=== PATIENT | female | born 1975 | race Two or more races ===

== ENCOUNTER 2017-07-10 17:26 | Emergency (ER) | payer MEDICAID, OTHER ==
[2017-07-10 17:34] VITALS: RESP 16; TEMP 97.9
[2017-07-10] MEDS ORDERED: NS 1,000 ML IV ONE (17:48)
--- NOTE | 2017-07-10 18:00 | EDPHY ---
H & P Stated Complaint: spoting , and cramping today Time Seen by Provider: 07/10/17 17:57 HPI/ROS: HPI: This is a 42-year-old female who presents with Chief Complaint: Vaginal spotting and pelvic cramping Location: Quality: Vaginal spotting and pelvic cramping Duration: Started approximately 3 hours ago Signs and Symptoms: no fever, + nausea, no vomiting, no hematemesis, no blood in stool, no abdominal bloating, no diarrhea, no back pain, no urinary symptoms , no indigestion, no chest pain, no shortness of breath, no vaginal discharge Timing: Sudden, intermittent Severity: 11/22 Context: Patient's last menstrual period was May 18; EGA=7 weeks and 4 days; ; who while at work today at around 2:30 p.m. went to use the restroom and noticed some vaginal spotting when she wiped accompanied by sudden onset of lower pelvic, waxing waning of cramps. Her 1st was uncomplicated. Patient reports that she has been at work all day on her feet. She has drank approximately 1/3 miss of water. Denies urinary symptoms. No recent sexual intercourse. Patient did not have a primary care provider prior to finding out she was ; she is made a few calls and has an appointment in approximately 4-5 weeks. Patient is unsure of her blood type. No concern for sexually transmitted diseases. Modifying Factors: None Comment: ROS: see HPI Constitutional: No fever, no chills, no weight loss Eyes: No blurred vision Respiratory: No shortness of breath, no cough Cardiovascular: No chest pain, no palpitations Gastrointestinal: + nausea, no vomiting, no diarrhea, no hematemesis, no blood in stool Genitourinary: No dysuria, no blood in urine Extremities: No myalgias, no edema Neurologic: No weakness, no numbness Skin: No rashes, no petechiae Hematologic: No bruising, no bleeding MEDICAL/SURGICAL/SOCIAL HISTORY: Medical history: IBS and nephritis. Does not take any regular medications. Surgical history: Denies Social history: Employed CONSTITUTIONAL: Pleasant well-appearing middle-aged female, awake and alert, no obvious distress HEENT: Atraumatic and normocephalic, PERRL, EOMI. Tympanic membranes clear. Oropharynx clear, no exudate and moist pink mucosa. Airway patent. No lymphadenopathy. No meningismus. Cardiovascular: Normal S1/S2, regular rate, regular rhythm, without murmur rub or gallop. PULMONARY/CHEST: Symmetrical and nontender. Clear to auscultation bilaterally. Good air movement. No accessory muscle usage. ABDOMEN: Soft, nondistended, nontender, no rebound, no guarding, no peritoneal signs, no masses or organomegaly. No CVAT. PELVIC: normal external genitalia, normal cervix, cervical os was closed, no cervical motion tenderness, no adnexal mass, no discharge, no bleeding. The exam was performed with a manager credit risk. EXTREMITIES: 2/2 pulses, no deformities, no clubbing, no cyanosis or edema. NEUROLOGICAL: no focal neuro deficits. GCS 15. SKIN: Warm and dry, no erythema. no rash. Good capillary refill. Source: Patient Exam Limitations: No limitations - Personal History LMP (Females 10-55): Now Current Tetanus Diphtheria and Acellular Pertussis (TDAP): Yes Tetanus Vaccine Date: 2010 - Medical/Surgical History Hx Asthma: No Hx Chronic Respiratory Disease: No Hx Diabetes: No Hx Cardiac Disease: No Hx Renal Disease: No Hx Cirrhosis: No Hx Alcoholism: No Hx HIV/AIDS: No Hx Splenectomy or Spleen Trauma: No Other PMH: IBS, Nephritis - Social History Smoking Status: Never smoked Constitutional: Initial Vital Signs Temperature (C) 36.6 C 07/10/17 17:31 Heart Rate 82 07/10/17 17:31 Respiratory Rate 16 07/10/17 17:31 Blood Pressure 107/76 07/10/17 17:31 O2 Sat (%) 96 07/10/17 17:31 O2 Delivery Mode Room Air Allergies/Adverse Reactions: Sulfa (Sulfonamide Antibiotics) Allergy (Verified 10/10/15 11:22) Home Medications: Medication Instructions Recorded NK [No Known Home Meds] 10/10/15 Medical Decision Making - Diagnostics Imaging Results: Imaging Impressions Obstetrics Ultrasound 07/10/17 17:49 Impression: There is a "candidate structure" within the fundal endometrium which may represent a gestational sac containing a yolk sac as well as a tiny echogenic embryonic pole, however given the small size, cardiac activity and viability cannot yet be confirmed. Continued clinical correlation to include closely-monitored serial beta hCG levels and repeat sonography in 10-14 days is suggested. Findings were discussed with Beth Damico PA-C at 19:10, on 07/10/2017. ED Course/Re-evaluation: Urinalysis, labs, ultrasound, IV fluids ordered Pelvic exam performed; no indication to obtain wet prep/gonorrhea/chlamydia swabs 190: Labs reviewed and beta-hCG quant 5759, no other significant lab abnormalities Called by radiologist Dr. Garces who advised that the ultrasound shows gestational sac, embryonic pole, EGA is approximately 6 weeks and 0 days, unable to find heart tones. No signs of subchorionic hemorrhage. Urinalysis is negative for infection, no ketones. Will have patient follow up with OBGYN; call for appointment to be seen on Friday as today is to have repeat serum beta HCG levels and ultrasound. Differential Diagnosis: Vaginal bleeding including but not limited to ectopic , menses, miscarriage, and dysfunctional uterine bleeding. - Data Points Laboratory Results: Laboratory Results 07/10/17 18:03 07/10/17 18:03 07/10/17 07/10/17 07/10/17 19:20 18:03 18:03 WBC RBC Hgb Hct MCV MCH MCHC RDW Plt Count MPV Neut % (Auto) Lymph % (Auto) Yates % (Auto) Eos % (Auto) Baso % (Auto) Nucleat RBC Rel Count Absolute Neuts (auto) Absolute Lymphs (auto) Absolute Monos (auto) Absolute Eos (auto) Absolute Basos (auto) Absolute Nucleated RBC Immature Gran % Immature Gran # Sodium 141 mEq/L mEq/L (134-144) Potassium 4.0 mEq/L mEq/L (3.5-5.2) Chloride 103 mEq/L mEq/L (97-110) Carbon Dioxide 25 mEq/l mEq/l (22-31) Anion Gap 13 mEq/L mEq/L (8-16) BUN 10 mg/dL mg/dL (7-23) Creatinine 0.6 mg/dL mg/dL (0.6-1.0) Estimated GFR > 60 Glucose 99 mg/dL mg/dL (70-100) Calcium 9.8 mg/dL mg/dL (8.5-10.4) Beta HCG, Qual POSITIVE Beta HCG, Quant 5759.30 mIU/mL H mIU/mL (0.00-4.83) Urine Color YELLOW Urine Appearance TURBID Urine pH 8.0 H (5.0-7.5) Ur Specific Atlantic 1.016 (1.002-1.030) Urine Protein NEGATIVE (NEGATIVE) Urine Ketones NEGATIVE (NEGATIVE) Urine Blood NEGATIVE (NEGATIVE) Urine Nitrate NEGATIVE (NEGATIVE) Urine Bilirubin NEGATIVE (NEGATIVE) Urine Urobilinogen NEGATIVE EU EU (0.2-1.0) Ur Leukocyte Esterase NEGATIVE (NEGATIVE) Urine Glucose NEGATIVE (NEGATIVE) 07/10/17 18:03 WBC 5.40 10^3/uL 10^3/uL (3.80-9.50) RBC 4.06 10^6/uL L 10^6/uL (4.18-5.33) Hgb 13.3 g/dL g/dL (12.6-16.3) Hct 38.5 % % (38.0-47.0) MCV 94.8 fL fL (81.5-99.8) MCH 32.8 pg pg (27.9-34.1) MCHC 34.5 g/dL g/dL (32.4-36.7) RDW 12.1 % % (11.5-15.2) Plt Count 244 10^3/uL 10^3/uL (150-400) MPV 9.8 fL fL (8.7-11.7) Neut % (Auto) 72.3 % % (39.3-74.2) Lymph % (Auto) 21.3 % % (15.0-45.0) Yates % (Auto) 5.4 % % (4.5-13.0) Eos % (Auto) 0.4 % L % (0.6-7.6) Baso % (Auto) 0.4 % % (0.3-1.7) Nucleat RBC Rel Count 0.0 % % (0.0-0.2) Absolute Neuts (auto) 3.91 10^3/uL 10^3/uL (1.70-6.50) Absolute Lymphs (auto) 1.15 10^3/uL 10^3/uL (1.00-3.00) Absolute Monos (auto) 0.29 10^3/uL L 10^3/uL (0.30-0.80) Absolute Eos (auto) 0.02 10^3/uL L 10^3/uL (0.03-0.40) Absolute Basos (auto) 0.02 10^3/uL 10^3/uL (0.02-0.10) Absolute Nucleated RBC 0.00 10^3/uL 10^3/uL (0-0.01) Immature Gran % 0.2 % % (0.0-1.1) Immature Gran # 0.01 10^3/uL 10^3/uL (0.00-0.10) Sodium Potassium Chloride Carbon Dioxide Anion Gap BUN Creatinine Estimated GFR Glucose Calcium Beta HCG, Qual Beta HCG, Quant Urine Color Urine Appearance Urine pH Ur Specific Atlantic Urine Protein Urine Ketones Urine Blood Urine Nitrate Urine Bilirubin Urine Urobilinogen Ur Leukocyte Esterase Urine Glucose Medications Given: Discontinued Medications Sodium Chloride (Ns) 1,000 mls @ 0 mls/hr IV ONCE ONE; Wide Open PRN Reason: Protocol Stop: 07/10/17 17:49 Last Admin: 07/10/17 18:06 Dose: 1,000 mls Departure - Departure Disposition: Home, Routine, Self-Care Clinical Impression: Threatened miscarriage in early Condition: Good Instructions: Threatened Miscarriage (ED) Additional Instructions: Observe pelvic rest. Do not place anything inside of your vagina including having sex, douche, tampons. Rest and avoid strenuous activities. During plenty of fluids to prevent dehydration. Take a vitamin daily. You may take Tylenol as needed for pain. Please follow up with OBGYN . Call tomorrow for an appointment to be scheduled on Friday to have repeat serum HCG levels and re-evaluation. Referrals: Zulma Pinzon DO [Doctor of Osteopathy] - As per Instructions
[2017-07-10 18:20] LABS: % IMMATURE GRANULYOCYTES 0.2 % (0.0-1.1); ABSOLUTE IMMATURE GRANULOCYTES 0.01 10^3/uL (0.00-0.10); ADD DIFF? NO; ADD MORPH? NO; ADD SCAN? NO; ATYPICAL LYMPHOCYTE FLAG 20 (0-99); FRAGMENT RBC FLAG 0 (0-99); HEMATOCRIT 38.5 % (38.0-47.0); HEMOGLOBIN 13.3 g/dL (12.6-16.3); LEFT SHIFT FLG 0 (0-99); LIPEMIA HEMOLYSIS FLAG 90 (0-99); MEAN CELL HEMOGLOBIN 32.8 pg (27.9-34.1); MEAN CELL HEMOGLOBIN CONCENTR. 34.5 g/dL (32.4-36.7); MEAN CELL VOLUME 94.8 fL (81.5-99.8); MEAN PLATELET VOLUME 9.8 fL (8.7-11.7); PLATELET CLUMPS FLAG 10 (0-99); PLATELET COUNT 244 10^3/uL (150-400); RED BLOOD CELL COUNT 4.06 10^6/uL (4.18-5.33); RED CELL DISTRIBUTION WIDTH 12.1 % (11.5-15.2)
[2017-07-10 18:32] LABS: ANION GAP 13 mEq/L (8-16); CALCIUM 9.8 mg/dL (8.5-10.4); CARBON DIOXIDE 25 mEq/l (22-31); CHLORIDE 103 mEq/L (97-110); CREATININE 0.6 mg/dL (0.6-1.0); GLOMERULAR FILTRATION RATE > 60; GLUCOSE 99 mg/dL (70-100); SODIUM 141 mEq/L (134-144)
[2017-07-10 19:31] LABS: COLOR YELLOW; LEUKOCYTE ESTERASE,URINE NEGATIVE (NEGATIVE); NITRITE,URINE NEGATIVE (NEGATIVE)
[2017-07-10 19:34] VITALS: BP 105/69; PULSE 66; O2SAT 97
== END 2017-07-10 19:32 | disposition home or self-care (01) ==
PROC: 3E0337Z Introduction of Electrolytic and Water Balance Substance into Peripheral Vein, Percutaneous Approach (ICD-10-PCS; principal; 2017-07-10)
DX: O20.0 Threatened abortion (principal); E86.9 Volume depletion, unspecified; Z3A.01 Less than 8 weeks gestation of pregnancy

== ENCOUNTER 2017-07-12 10:58 | Emergency (ER) | payer MEDICAID ==
--- NOTE | 2017-07-12 11:50 | EDPHY ---
General - History Smoking Status: Never smoked Narrative: CHIEF COMPLAINT: Vaginal bleeding in HISTORY OF PRESENT ILLNESS: Patient complains of vaginal bleeding in . She is approximately 8 weeks with last menstrual period of May 18. She is a with normal 1st . She had spotting that started several days ago. She was evaluated here for this. She was discharged home after ultrasound, pelvic exam , urinalysis, laboratory studies with threatened miscarriage. The Rh type was unable to be performed due to lab error. She returns today with increasing bleeding and spotting. She has some pelvic cramping yesterday but not this time. No chest pain or shortness of breath. She did have some lightheadedness. No syncope. The bleeding is less than 1 pad every 2-4 hours. No other associated complaints or modifying factors. She has not yet established with an OB physician for this . REVIEW OF SYSTEMS: Ten systems reviewed and are negative unless otherwise noted in the HPI PCP: Dr. Oliveros SPECIALISTS: Not established with OB PAST MEDICAL HISTORY: Per medical history PAST SURGICAL HISTORY: No surgical history SOCIAL HISTORY: Nonsmoker. Lives here with her spouse FAMILY HISTORY: Noncontributory EXAMINATION General Appearance: Alert, no distress Head: normocephalic, atraumatic Eyes: Pupils equal and round, no conjunctival pallor or injection ENT, Mouth: Mucous membranes moist Neck: Normal inspection, supple, non-tender Respiratory: Lungs are clear to auscultation. No wheezing, rhonchi or crackles Cardiovascular: Regular rate and rhythm. No murmur Gastrointestinal: Abdomen is soft and nontender. No distention. No tympany. No rigidity. Nonacute abdomen Back: non-tender, no bony abnormalities Neurological: A&O, nonfocal, normal gait Skin: Warm and dry, no rash Extremities: Nontender, no pedal edema Psychiatric: Mood and affect normal DIFFERENTIAL DIAGNOSES: Including but not limited to foot miscarriage, inevitable miscarriage subchorionic, intrauterine MDM: 11:40 a.m. Increasing bleeding in first-trimester . She was seen 2 days ago with initial evaluation performed here. Ultrasound was performed and I have reviewed this. IUP gestational sac is thought to be seen with recommendation of repeat ultrasound in 10-14 days. There appears to have been a difficulty with the blood bank, thus the are rates was never tested on this patient. Thus I ordered. Vital signs are stable. repeating her hemoglobin as well. She is in no acute distress. 1:40 p.m. CBC is unremarkable. HCG has gone down over course of 48 hours, from 5759 to 4640. I have evaluated the patient and informed her this is a nonviable . Rh positive, thus no indication for RhoGAM. We discussed discharge home with precautions for increasing bleeding greater than 1 pad per hour, abdominal pain that is too severe for her, lightheadedness, syncope or chest pain. I discussed pelvic rest and follow up with the on-call OB physician for definitive care. She is comfortable this plan. No pelvic exam performed she had one 2 days ago and does not want this repeated. She is discharged in stable condition. (Abad Menjivar) Medical Decision Making: PHYSICIAN DOCUMENTATION: The patient was evaluated and managed by the Physician Roof [employer] Tile Setter. My co- signature indicates that I have reviewed this chart and I agree with the findings and plan of care as documented. I am the secondary supervising physician. (Ric Samaniego) - Objective Vital Signs: Initial Vital Signs Temperature (C) 36.9 C 07/12/17 11:01 Heart Rate 70 07/12/17 11:01 Respiratory Rate 18 07/12/17 11:01 Blood Pressure 97/67 L 07/12/17 11:01 O2 Sat (%) 98 07/12/17 11:01 O2 Delivery Mode Room Air Allergies/Adverse Reactions: Sulfa (Sulfonamide Antibiotics) Allergy (Verified 07/12/17 11:01) Home Medications: Medication Instructions Recorded NK [No Known Home Meds] 10/10/15 Laboratory Results: Laboratory Results 07/12/17 12:25 07/12/17 07/12/17 07/12/17 12:25 12:25 12:25 WBC 7.06 10^3/uL 10^3/uL (3.80-9.50) RBC 3.99 10^6/uL L 10^6/uL (4.18-5.33) Hgb 13.6 g/dL g/dL (12.6-16.3) Hct 38.6 % % (38.0-47.0) MCV 96.7 fL fL (81.5-99.8) MCH 34.1 pg pg (27.9-34.1) MCHC 35.2 g/dL g/dL (32.4-36.7) RDW 12.0 % % (11.5-15.2) Plt Count 238 10^3/uL 10^3/uL (150-400) MPV 9.6 fL fL (8.7-11.7) Neut % (Auto) 73.7 % % (39.3-74.2) Lymph % (Auto) 18.1 % % (15.0-45.0) Floyd % (Auto) 5.9 % % (4.5-13.0) Eos % (Auto) 1.6 % % (0.6-7.6) Baso % (Auto) 0.4 % % (0.3-1.7) Nucleat RBC Rel Count 0.0 % % (0.0-0.2) Absolute Neuts (auto) 5.20 10^3/uL 10^3/uL (1.70-6.50) Absolute Lymphs (auto) 1.28 10^3/uL 10^3/uL (1.00-3.00) Absolute Monos (auto) 0.42 10^3/uL 10^3/uL (0.30-0.80) Absolute Eos (auto) 0.11 10^3/uL 10^3/uL (0.03-0.40) Absolute Basos (auto) 0.03 10^3/uL 10^3/uL (0.02-0.10) Absolute Nucleated RBC 0.00 10^3/uL 10^3/uL (0-0.01) Immature Gran % 0.3 % % (0.0-1.1) Immature Gran # 0.02 10^3/uL 10^3/uL (0.00-0.10) Beta HCG, Quant 4641.10 mIU/mL H mIU/mL (0.00-4.83) Patient ABO/Rh O POSITIVE Departure - Departure Disposition: Home, Routine, Self-Care Clinical Impression: Inevitable spontaneous Condition: Good Instructions: Miscarriage (ED), Threatened Miscarriage (ED) Additional Instructions: 1. Contact the on-call OB physician for definitive care early next week 2. ED precautions for worsening pain, lightheaded, syncope, chest pain, bleeding greater than 1 pad per hour Referrals: ADAM ANGELES [Primary Care Provider] - As per Instructions Tiny Roy MD [Medical Doctor] - As per Instructions Stand Alone Forms: Work Excuse
[2017-07-12 12:42] LABS: % IMMATURE GRANULYOCYTES 0.3 % (0.0-1.1); ABSOLUTE IMMATURE GRANULOCYTES 0.02 10^3/uL (0.00-0.10); ADD DIFF? NO; ADD MORPH? NO; ADD SCAN? NO; ATYPICAL LYMPHOCYTE FLAG 10 (0-99); FRAGMENT RBC FLAG 0 (0-99); HEMATOCRIT 38.6 % (38.0-47.0); HEMOGLOBIN 13.6 g/dL (12.6-16.3); LEFT SHIFT FLG 0 (0-99); LIPEMIA HEMOLYSIS FLAG 90 (0-99); MEAN CELL HEMOGLOBIN 34.1 pg (27.9-34.1); MEAN CELL HEMOGLOBIN CONCENTR. 35.2 g/dL (32.4-36.7); MEAN CELL VOLUME 96.7 fL (81.5-99.8); MEAN PLATELET VOLUME 9.6 fL (8.7-11.7); PLATELET CLUMPS FLAG 0 (0-99); PLATELET COUNT 238 10^3/uL (150-400); RED BLOOD CELL COUNT 3.99 10^6/uL (4.18-5.33)
[2017-07-12 13:23] VITALS: RESP 16
[2017-07-12 14:03] VITALS: BP 98/73; PULSE 61; TEMP 98.8; O2SAT 97
== END 2017-07-12 14:03 | disposition home or self-care (01) ==
DX: O03.9 Complete or unspecified spontaneous abortion without complication (principal); Z3A.08 8 weeks gestation of pregnancy

== ENCOUNTER 2017-08-05 07:30 | Day surgery (SDC) | payer MEDICAID ==
--- NOTE | 2017-07-31 22:45 | GHP ---
[f rep st] PREOP HISTORY AND PHYSICAL PROCEDURE TO BE PERFORMED: Suction dilation and curettage. PREOPERATIVE DIAGNOSIS: Missed . HISTORY OF PRESENT ILLNESS: Maisha is a 42-year-old 1, para 0-0-1-0 with a last menstrual period of 05/18/2017, who originally presented to the emergency department complaining of steady vaginal bleeding and cramping. She had episodes of heavy bleeding originally with lightheadedness and dizziness and she originally presented to the emergency room on July 12. She was evaluated, found to have a persistent gestational sac. No further heavy active bleeding and was diagnosed with a missed . She followed up with us on 07/14/2017. She had a minimal bleeding at that point. This was a desired and she wanted to make sure of the true diagnosis. A repeat ultrasound at that visit revealed a persistent gestational sac with debris and it was collapsed, and the diagnosis of incomplete was made. The patient was given treatment options of expectant management versus medical management versus surgical management. We carefully explained the pros, cons of each and the need to pass the tissue at least 2 weeks to prevent intrauterine infections that could compromise future fertility. 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 She did this at home and felt that she had heavy bleeding, passed the sac and tissue over couple days, and the bleeding got improved. When she presented for followup on July 30, 2017, she was not having active bleeding but she had irritated vagina, increased discharge with odor and evaluation revealed a persistent gestational sac in the uterus that was again collapsed and had debris. She also had moderate to moderate vaginal discharge was diagnosed with bacterial vaginosis. Again we discussed treatment options and patient opted to have a suction dilation curettage. She was also treated for her bacterial vaginosis with Metrogel prior to surgery. PAST OBSTETRICAL HISTORY: This is her 3rd . In 2007 she had a vaginal delivery without complications. In 2011 she had an elective termination. No other pregnancies. PAST GYNECOLOGICAL HISTORY: She had menarche at age 14. She has regular periods every 28 days. She bleeds approximately every 3 days, moderate flow, light cramps and she had a sure and regular last menstrual period of May, and they were trying to conceive. PAST MEDICAL HISTORY: She has no significant chronic medical problems or medical issues except anxiety. No surgical history. Never been hospitalized. MEDICATIONS: She is not on any current medications. ALLERGIES: She is allergic to sulfa, it gives her a rash. SOCIAL HISTORY: She is in a monogamous relationship but not . They are monogamous partners. She denies tobacco and alcohol use. She does admit to marijuana use socially. No other substances. She does regular exercise, yoga, running and dance. 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 FAMILY HISTORY: Significant for maternal grandmother with osteoporosis. No other significant medical problems. REVIEW OF SYSTEMS: Currently is negative except for what was pertinent above in HPI. PHYSICAL EXAMINATION: VITAL SIGNS: Today her blood pressure is 90/52. Weight is 125. GENERAL: She is well-developed, well-nourished female, in no acute distress. LUNGS: Clear to auscultation bilaterally. HEART: Regular rate and rhythm. No murmur. ABDOMEN: Soft, nontender, nondistended. Normal bowel sounds. PELVIC: Normal external genitalia. Moderate white to yellow discharge. Mild odor. Cervix is closed. Normal parous cervix. No cervical motion tenderness. No uterine tenderness. No adnexal tenderness. Wet prep and BEA were positive for clue cells and odor. Diagnosed with bacterial vaginosis. Pelvic ultrasound revealed a persistent collapsed gestational sac with debris. ASSESSMENT/PLAN: A 42-year-old 3, para 1-0-2-1 with an incomplete for suction dilation and curettage. Patient was consented for the procedure today. She understands the risks and benefits. The risks including bleeding, infection, damage to internal organs, uterus, tubes, ovaries, bowel, bladder, nerves, blood vessels, ureters, risk of needing additional procedures, risk of spontaneous expulsion of tissue at a later time, and compromise of future fertility. She understood these risks and benefits and agreed to proceed. /[id number]/MODL MTDD
[2017-08-05 07:46] VITALS: BP 105/69; PULSE 57; RESP 16; TEMP 98.6; O2SAT 92
--- NOTE | 2017-08-05 08:21 | PDANEPAE ---
ANE History of Present Illness 42 yo female with missed for D&C. ANE Past Medical History - Cardiovascular History Hx Hypertension: No Hx Chest Pain: No Hx Palpitations: No - Pulmonary History Hx COPD: No Hx Asthma/Reactive Airway Disease: No Hx Recent Upper Respiratory Infection: No Hx Oxygen in Use at Home: No Hx Sleep Apnea: No - Endocrine History Hx Diabetes: No Hypothyroid: No Hyperthyroid: No - Renal History Hx Renal Disorders: No - Liver History Hx Hepatic Disorders: No - GI History GERD: no ANE Review of Systems Review of systems is: negative Review of Systems: ANE Patient History - Allergies Allergies/Adverse Reactions: Sulfa (Sulfonamide Antibiotics) Allergy (Verified 07/12/17 11:01) - Home Medications Home Medications: NK [No Known Home Meds] 10/10/15 [Last Taken Unknown] - NPO status NPO Status: no food or drink >8 hours - Anes Hx Anes Hx: no prior problems - Smoking Hx Smoking Status: Never smoked - Family Anes Hx Family Anes Hx: neg - N/A ANE Labs/Vital Signs - Vital Signs Blood Pressure: 105/69 Heart Rate: 57 Respiratory Rate: 16 O2 Sat (%): 92 Height: 167.64 cm Weight: 55.338 kg ANE Physical Exam - Airway Neck exam: FROM Mallampati Score: Class 2 Mouth exam: normal dental/mouth exam - Pulmonary Pulmonary: clear to auscultation - Cardiovascular Cardiovascular: regular rate and rhythym - ASA Status ASA Status: I ANE Anesthesia Plan Anesthesia Plan: GA with mask Total IV Anesthesia: Yes
[2017-08-05] MEDS ORDERED: PROPOFOL/EMULSION 500 MG/50 ML BOTTLE IV ONE (08:22)
[2017-08-05] MEDS ORDERED: DEXAMETHASONE 4 MG/ML VIAL ONE (08:22)
[2017-08-05] MEDS ORDERED: fentaNYL 100 MCG/2 ML INJ ONE (08:22)
[2017-08-05] MEDS ORDERED: DOXYCYCLINE INJ 100 MG in D5W 250 ML IV ONE (08:30)
[2017-08-05] MEDS ORDERED: KETOROLAC 30 MG/1 ML SDV ONE (09:04)
[2017-08-05] MEDS ORDERED: ALBUTEROL 3 ML DEYVIAL IH PRN (09:24)
[2017-08-05] MEDS ORDERED: LR 500 ML IV PRN (09:24)
[2017-08-05] MEDS ORDERED: NALOXONE HCL 0.4 MG/ML INJ IVP PRN (09:24)
[2017-08-05] MEDS ORDERED: fentaNYL 100 MCG/2 ML INJ IVP PRN (09:24)
[2017-08-05] MEDS ORDERED: PROMETHAZINE HCL 25 MG/ML INJ IVP PRN (09:24)
[2017-08-05] MEDS ORDERED: HYDROCODONE/APAP 5/325 TAB PO PRN (09:24)
[2017-08-05] MEDS ORDERED: ACETAMINOPHEN 500 MG TAB PO PRN (09:24)
[2017-08-05] MEDS ORDERED: ONDANSETRON 4 MG/2 ML VIAL IVP PRN (09:24)
--- NOTE | 2017-08-05 09:25 | POSTANESTH ---
Post Anesthetic Evaluation Cardiovascular Status: Normal, Stable Respiratory Status: Normal, Stable Level of Consciousness/Mental Status: Can Participate in Eval, Mildly Sleepy, Arousable Pain Control: Adequate, Prn Tx Ordered Nausea/Vomiting Control: Adequate, Prn Tx Ordered Complications Possibly Related to Anesthesia: None Noted
--- NOTE | 2017-08-06 06:54 | GOP ---
[f rep st] OPERATIVE REPORT DATE OF OPERATION: 08/05/2017 SURGEON: Adriana Lewis DO ANESTHESIA: General with propofol. ANESTHESIOLOGIST: Anna Mai MD PREOPERATIVE DIAGNOSIS: Missed . POSTOPERATIVE DIAGNOSIS: Missed . PROCEDURE PERFORMED: Suction dilation and curettage. FINDINGS: Mobile midposition uterus with no adnexal masses. SPECIMENS: Products of conception. Postprocedure ultrasound thin endometrial. ESTIMATED BLOOD LOSS: 10 mL. INDICATIONS: Patient is a 42-year-old 3, para 1, 0, 1, 1, who had a last menstrual period of 05/18/2017. She initially presented to the emergency room complaining of steady vaginal bleeding an d cramping. She had an ultrasound which showed a gestational sac and a positive test. She had a followup ultrasound in our office several days later and an ultrasound was performed which elvin wed a persistent gestational sac with debris in it and a diagnosis of incomplete was made. Management options were reviewed with the patient. The patient attempted to use herbs first but gregorio cortez failed medical therapy and would like to proceed with a suction dilation and curettage. Risks and benefits were reviewed with the patient. Patient was properly consented. DESCRIPTION OF PROCEDURE: Patient was taken to the operating room with intravenous fluids in place. She was given 2 g of Ancef intravenously. She was placed on the operating room table in the dorsal supine position where anesthesia with propofol was obtained. She was then repositioned in dorsal lit hotomy position with the Yellofin stirrups and prepped and draped in the normal sterile fashion. Exa m under anesthesia revealed a mobile, midposition uterus with no adnexal masses. A speculum was then placed in the posterior aspect of the patient's vagina. An Allis clamp was used to grasp the anteri or lip of the cervix. The cervix was then carefully dilated to allow for the introduction of a curve d suction curette. The suction curette was then introduced and a circumferential curettage was perfo rmed until a gritty texture was noted. The instruments were removed from the patient's vagina. A tr ansvaginal ultrasound was performed which showed a thin endometrial stripe. No bleeding was noted. The instruments were then removed the patient's vagina. The patient was easily awoken from anesthesi a and she was then transferred to the recovery room. Sponge count was correct. The patient was robertson sferred to recovery room in stable condition. /[id number]/MODL
== END 2017-08-05 10:55 | disposition home or self-care (01) ==
LOC: FOBOP 07:30
PROVIDERS: ATTEND Obstetrics & Gynecology
PROC: 10D17ZZ Extraction of Products of Conception, Retained, Via Natural or Artificial Opening (ICD-10-PCS; principal; 2017-08-05)
DX: O02.1 Missed abortion (principal); Z3A.01 Less than 8 weeks gestation of pregnancy
CPT/HCPCS: J1100; J1885; J2704; J3010

== ENCOUNTER 2018-03-26 05:14 | Observation (INO) | payer MEDICAID ==
[2018-03-26] MEDS ORDERED: NS 1,000 ML IV ONE ×3 (05:21→12:13)
--- NOTE | 2018-03-26 05:22 | EDPHY ---
H & P Stated Complaint: fever, MEDINA, lower abd pain, nausea x4 days Time Seen by Provider: 03/26/18 05:22 HPI/ROS: HPI CHIEF COMPLAINT: Fever, nausea, generalized weakness HISTORY OF PRESENT ILLNESS: 43-year-old female, presents to the emergency room with fever, generalized weakness, dehydration, nausea, lower abdominal pain/ cramping, dysuria and foul-smelling urine. Patient states that since Friday she has been sick. She initially developed chills on Friday and throughout the week has been "pushing through" to go to work. She states throughout the past 4 days her symptoms have gotten worse with generalized weakness, she states she has had a fever for the past 4 days but has not taken her actual temperature. She denies chest pain, denies cough, complains of dysuria, urinary frequency foul smell to her urine additionally some lower abdominal discomfort, nausea generalized weakness. Past Medical History: Denies significant medical history except for typhoid fever Past Surgical History: D+C Social History: denies daily use drugs alcohol tobacco Family History: Noncontributory ROS REVIEW OF SYSTEMS: A comprehensive 10 point review of systems is otherwise negative aside from elements mentioned in the history of present illness. Exam Constitutional triage nursing summary reviewed, vital signs reviewed, awake/ alert. Vital signs noted at triage to be tachycardic, febrile, hypotensive Eyes normal conjunctivae and sclera, EOMI, PERRLA. HENT normal inspection, atraumatic, moist mucus membranes, no epistaxis, neck supple/ no meningismus, no raccoon eyes. Respiratory clear to auscultation bilaterally, normal breath sounds, no respiratory distress, no wheezing. Cardiovascular tachycardic, regular rhythm, no murmur, no edema, distal pulses normal. Gastrointestinal soft, non-tender, no rebound, no guarding, normal bowel sounds, no distension, no pulsatile mass. Genitourinary no CVA tenderness. Musculoskeletal no midline vertebral tenderness, full range of motion, no calf swelling, no tenderness of extremities, no meningismus, good pulses, neurovascularly intact. Skin pink, warm, & dry, no rash, skin atraumatic. Neurologic awake, alert and oriented x 3, AAOx3, moves all 4 extremities equally, motor intact, sensory intact, CN II-XII intact, normal cerebellar, normal vision, normal speech. Psychiatric normal mood/affect. Heme/Lymph/Immune no lymphadenopathy. Differential Diagnosis: Includes but is not limited to in a particular order acute febrile illness, bacteremia, sepsis, UTI, pyelonephritis, colitis, diverticulitis, appendicitis, pneumonia, dehydration, electrolyte disturbance Medical Decision Making: Plan for this patient she has noted be tachycardic and febrile upon arrival. Additionally she has been sick for days. Plan will be for blood cultures, lactic acid, 2 L normal saline IV fluid bolus, check urinalysis, urine culture, blood cultures, chest x-ray, electrolytes and re- evaluate. Re-evaluation: ED x-ray chest one view: Negative for acute cardiopulmonary disease. No focal pneumonia. 0650: Repeat vitals heart rate is down to 99 from 117. Blood pressure stable. Fever is coming down. Patient currently at this time getting a CT scan abdomen pelvis with IV contrast rule out acute appendicitis given abdominal pain fever or other acute inflammatory process seen on CT. 0651: Spoke with the hospitalist service Dr. Adame, appears to admit the patient for acute febrile illness. Dehydration. CT scan abdomen pelvis with IV contrast: Shows a large amount of gas throughout the colon and small intestines consistent with a ileus. Some fluid filled loops of bowel in her pelvis but no evidence a dilatation. No evidence of obstruction. Please see full details of the dictation by Dr. Gerardo. Will consult the hospitalist service for admission for observation today for abdominal cramps, possible ileus, acute febrile illness, dehydration. 0722: Here in emergency room she does not appear toxic. Vital signs have been stable. Her tachycardia has improved. Fever down. She is resting comfortably. Blood pressure stable. 0729AM: Discussed the Case with Dr. Adame who agrees to admit. Plan will be for admission for observation today for fever, dehydration, abdominal cramps, possible ileus on CT scan, blood cultures have been sent, urine culture sent. Lactic acid less than 2, white blood cell count platelets noted to be low concerning for viral etiology. Sent influenza swab. Source: Patient - Personal History LMP (Females 10-55): 1-7 Days Ago Current Tetanus/Diphtheria Vaccine: Yes Tetanus Vaccine Date: 2010 - Medical/Surgical History Hx Asthma: No Hx Chronic Respiratory Disease: No Hx Diabetes: No Hx Cardiac Disease: No Hx Renal Disease: No Hx Cirrhosis: No Hx Alcoholism: No Hx HIV/AIDS: No Hx Splenectomy or Spleen Trauma: No Other PMH: IBS, Nephritis, typhoid 2012 - Social History Smoking Status: Never smoked Constitutional: Initial Vital Signs Temperature (C) 39.2 C H 03/26/18 05:16 Heart Rate 117 H 03/26/18 05:16 Respiratory Rate 18 03/26/18 05:16 Blood Pressure 96/65 L 03/26/18 05:16 O2 Sat (%) 96 03/26/18 05:16 O2 Delivery Mode Room Air Allergies/Adverse Reactions: Sulfa (Sulfonamide Antibiotics) Allergy (Verified 03/26/18 08:45) Unknown Home Medications: Medication Instructions Recorded Acetaminophen [Tylenol 325mg (*)] 650 mg PO Q4HRS PRN tab 03/27/18 Medical Decision Making - Data Points Laboratory Results: Laboratory Results 03/26/18 05:36 03/26/18 05:36 Medications Given: Discontinued Medications Acetaminophen (Tylenol) 1,000 mg PO EDNOW ONE Stop: 03/26/18 06:11 Last Admin: 03/26/18 06:11 Dose: 1,000 mg Acetaminophen (Tylenol) 650 mg PO Q4HRS PRN PRN Reason: Pain, Mild/Fever, Can Take PO Stop: 09/22/18 08:29 Last Admin: 03/26/18 19:33 Dose: 650 mg Sodium Chloride (Ns) 1,000 mls @ 0 mls/hr IV EDNOW ONE; Wide Open PRN Reason: Protocol Stop: 03/26/18 05:22 Last Admin: 03/26/18 06:05 Dose: 1,000 mls Sodium Chloride (Ns) 1,000 mls @ 0 mls/hr IV EDNOW ONE; Wide Open PRN Reason: Protocol Stop: 03/26/18 05:22 Last Admin: 03/26/18 06:06 Dose: 1,000 mls Sodium Chloride (Ns) 1,000 mls @ 150 mls/hr IV CONT ALISHA Stop: 09/22/18 08:29 Last Admin: 03/26/18 20:37 Dose: 1,000 mls Ciprofloxacin/Dextrose (Cipro 400 Mg (Premix)) 200 mls @ 200 mls/hr IV Q12HRS ALISHA PRN Reason: Protocol Stop: 04/25/18 12:14 Last Admin: 03/27/18 08:39 Dose: 200 mls Metronidazole/Sodium Chloride (Flagyl 500 Mg (Premix)) 100 mls @ 100 mls/hr IV Q8HRS ALISHA PRN Reason: Protocol Stop: 04/25/18 13:59 Last Admin: 03/27/18 05:04 Dose: 100 mls Sodium Chloride (Ns) 1,000 mls @ 0 mls/hr IV ONCE ONE PRN Reason: Wide Open Stop: 03/26/18 12:14 Last Admin: 03/26/18 12:36 Dose: 1,000 mls Ibuprofen (Motrin) 800 mg PO EDNOW ONE Stop: 03/26/18 05:36 Last Admin: 03/26/18 06:05 Dose: Not Given Departure - Departure Disposition: [facility] Acute Clinical Impression: Dehydration, Abdominal cramps, Ileus Fever Qualifiers: Fever type: unspecified Qualified Code(s): R50.9 - Fever, unspecified Condition: Fair
[2018-03-26] MEDS ORDERED: IBUPROFEN 800 MG TAB PO ONE (05:35)
[2018-03-26] MEDS ORDERED: ACETAMINOPHEN 500 MG TAB ONE (06:09)
[2018-03-26] MEDS ORDERED: ACETAMINOPHEN 500 MG TAB PO ONE (06:10)
[2018-03-26 06:13] LABS: PLATELET COUNT 125 10^3/uL (150-400)
[2018-03-26 06:22] LABS: INR 0.99 (0.83-1.16); PROTIME(PATIENT) 13.3 SEC (12.0-15.0)
[2018-03-26] MEDS ORDERED: IOPAMIDOL (ISOVUE-300) 100 ML BTL ONE (06:41)
[2018-03-26] MEDS ORDERED: HYDROmorphONE/DILAUDID 2 MG TAB PO PRN (08:30)
[2018-03-26] MEDS ORDERED: NS 1,000 ML IV SCH (08:30)
[2018-03-26] MEDS ORDERED: HYDROmorphONE/DILAUDID 1 MG/ML INJ IVP PRN (08:30)
[2018-03-26] MEDS ORDERED: ONDANSETRON 4 MG/2 ML VIAL IVP PRN (08:30)
[2018-03-26] MEDS ORDERED: ACETAMINOPHEN 325 MG TAB PO PRN (08:30)
[2018-03-26] MEDS ORDERED: METOCLOPRAMIDE 10 MG/2 ML VIAL IVP PRN (08:30)
[2018-03-26] MEDS ORDERED: ONDANSETRON DISINTEGRATING 4 MG TAB PO PRN (08:30)
[2018-03-26] MEDS ORDERED: METOCLOPRAMIDE 10 MG TAB PO PRN (08:30)
[2018-03-26] MEDS: CIPROFLOXACIN 400 MG/DEXTROSE 200 ML IV SCH ×2 (12:36→21:05)
--- NOTE | 2018-03-26 16:09 | ASMTCMCOM ---
CM Note CM Note Notes: Spoke w/ RN, pt lives independent with SO. She is admitted with a high fever and possible ileus. Anticipate pt will dc home w/support of her SO when medically stable, CM available for any changes. DC Plan: Independent Date Signed: 03/26/2018 04:08 PM Electronically Signed By:Gladys Valle RN
--- NOTE | 2018-03-26 21:52 | PDGENHP ---
History and Physical - Chief Complaint Acute Abdominal Pain - History of Present Illness PCP: Dr. Cohen HPI: 43 yo F p/w acute abdominal pain located in the LUQ, characterized as sharp , assoc w/ subjective fever, nausea, anorexia, chills, headache, and general malaise. Onset of symptoms 3 days ago, duration persistent thereafter. Prior to onset, she was otherwise feeling well and had a very physically active weekend w /o complaints or injury. During the past 3 days, she has noted that the MEDINA is worse as night, and the nausea is exacerbated by PO intake. She has continued to move her bowels up until the day prior to presentation. Stool consistency was normal in appearance. She attempted to alleviate symptoms w/ theraflu and ibuprofen w/o much success. Prior to her Sx onset, she had tried a new herb ( shatavari). History Information - Allergies/Home Medication List Allergies/Adverse Reactions: Sulfa (Sulfonamide Antibiotics) Allergy (Verified 03/26/18 08:45) Unknown Home Medications: NK [No Known Home Meds] 10/10/15 [Last Taken Unknown] I have personally reviewed and updated: family history, medical history, social history, surgical history Past Medical History: reportedly Typhoid fever in 2011 and recurrence in 2012 - Surgical History Additional surgical history: D&C 08/01 for missed (reviewed outside records, 07/31/[address] H[address] Heather Radford, reports missed AB and D&C tx) - Family History Additional family history: grandparent w/ colon cancer; father w/ VTE; no rheumatologic issues - Social History Smoking Status: Never smoked Alcohol Use: None Drug Use: Marijuana Additional social history: very physically active, regularly; no international travel in past 6 months Review of Systems Review of Systems: ROS: 10pt was reviewed & negative except for what was stated in HPI & below Constitutional: Reports: chills, fever, malaise Gastrointestinal: Reports: abdominal pain, nausea Neurological: Reports: headache Physical Exam Physical Exam: Temp Pulse Resp BP Pulse Ox 38.3 C H 88 16 97/62 L 95 03/26/18 19:29 03/26/18 19:29 03/26/18 19:29 03/26/18 19:29 03/26/18 19:29 Constitutional: no apparent distress, appears nourished, not in pain, uncomfortable Eyes: PERRL, anicteric sclera, EOMI Ears, Nose, Mouth, Throat: moist mucous membranes, hearing normal, ears appear normal, no oral mucosal ulcers Cardiovascular: regular rate and rhythym, no murmur, rub, or gallop, irregularly irregular, No edema Respiratory: no respiratory distress, no rales or rhonchi, clear to auscultation Gastrointestinal: normoactive bowel sounds, soft, non-tender abdomen, no palpable masses, No guarding, No distension Skin: warm, No rash Musculoskeletal: other (no meningismus) Neurologic: AAOx3, No weakness (motor 5/5 bilat LE) Psychiatric: not encephalopathic, thought process linear, anxious, No agitated Lab Data & Imaging Review 03/26/18 05:36 03/26/18 05:36 WBC 2.38 10^3/uL (3.80-9.50) L 03/26/18 05:36 RBC 4.37 10^6/uL (4.18-5.33) 03/26/18 05:36 Hgb 14.5 g/dL (12.6-16.3) 03/26/18 05:36 Hct 41.0 % (38.0-47.0) 03/26/18 05:36 MCV 93.8 fL (81.5-99.8) 03/26/18 05:36 MCH 33.2 pg (27.9-34.1) 03/26/18 05:36 MCHC 35.4 g/dL (32.4-36.7) 03/26/18 05:36 RDW 12.5 % (11.5-15.2) 03/26/18 05:36 Plt Count 125 10^3/uL (150-400) L 03/26/18 05:36 MPV 10.5 fL (8.7-11.7) 03/26/18 05:36 Neut % (Auto) 68.6 % (39.3-74.2) 03/26/18 05:36 Lymph % (Auto) 9.2 % (15.0-45.0) L 03/26/18 05:36 [place] % (Auto) 12.2 % (4.5-13.0) 03/26/18 05:36 Eos % (Auto) 9.2 % (0.6-7.6) H 03/26/18 05:36 Baso % (Auto) 0.4 % (0.3-1.7) 03/26/18 05:36 Nucleat RBC Rel Count 0.0 % (0.0-0.2) 03/26/18 05:36 Absolute Neuts (auto) 1.63 10^3/uL (1.70-6.50) L 03/26/18 05:36 Absolute Lymphs (auto) 0.22 10^3/uL (1.00-3.00) L 03/26/18 05:36 Absolute Monos (auto) 0.29 10^3/uL (0.30-0.80) L 03/26/18 05:36 Absolute Eos (auto) 0.22 10^3/uL (0.03-0.40) 03/26/18 05:36 Absolute Basos (auto) 0.01 10^3/uL (0.02-0.10) L 03/26/18 05:36 Absolute Nucleated RBC 0.00 10^3/uL (0-0.01) 03/26/18 05:36 Immature Gran % 0.4 % (0.0-1.1) 03/26/18 05:36 Immature Gran # 0.01 10^3/uL (0.00-0.10) 03/26/18 05:36 RBC/WBC/PLT Morphology TNP 03/26/18 05:36 Platelet Estimate TNP 03/26/18 05:36 PT 13.3 SEC (12.0-15.0) 03/26/18 05:36 INR 0.99 (0.83-1.16) 03/26/18 05:36 APTT 32.9 SEC (23.0-38.0) 03/26/18 05:36 VBG Lactic Acid 0.9 mmol/L (0.7-2.1) 03/26/18 12:39 Sodium 135 mEq/L (135-145) 03/26/18 05:36 Potassium 4.1 mEq/L (3.3-5.0) 03/26/18 05:36 Chloride 102 mEq/L (97-110) 03/26/18 05:36 Carbon Dioxide 21 mEq/l (22-31) L 03/26/18 05:36 Anion Gap 12 mEq/L (8-16) 03/26/18 05:36 BUN 7 mg/dL (7-23) 03/26/18 05:36 Creatinine 0.7 mg/dL (0.6-1.0) 03/26/18 05:36 Estimated GFR > 60 03/26/18 05:36 Glucose 107 mg/dL (70-100) H 03/26/18 05:36 Calcium 9.4 mg/dL (8.5-10.4) 03/26/18 05:36 Total Bilirubin 0.5 mg/dL (0.1-1.4) 03/26/18 05:36 Conjugated Bilirubin 0.3 mg/dL (0.0-0.5) 03/26/18 05:36 Unconjugated Bilirubin 0.2 mg/dL (0.0-1.1) 03/26/18 05:36 AST 37 IU/L (14-46) 03/26/18 05:36 ALT 45 IU/L (9-52) 03/26/18 05:36 Alkaline Phosphatase 78 IU/L (38-126) 03/26/18 05:36 Total Protein 7.5 g/dL (6.3-8.2) 03/26/18 05:36 Albumin 4.3 g/dL (3.5-5.0) 03/26/18 05:36 Lipase 92 IU/L (23-300) 03/26/18 05:36 Beta HCG, Qual NEGATIVE 03/26/18 05:30 Urine Color YELLOW 03/26/18 06:25 Urine Appearance HAZY 03/26/18 06:25 Urine pH 9.0 (5.0-7.5) H 03/26/18 06:25 Ur Specific [place] 1.015 (1.002-1.030) 03/26/18 06:25 Urine Protein NEGATIVE (NEGATIVE) 03/26/18 06:25 Urine Ketones TRACE (NEGATIVE) H 03/26/18 06:25 Urine Blood NEGATIVE (NEGATIVE) 03/26/18 06:25 Urine Nitrate NEGATIVE (NEGATIVE) 03/26/18 06:25 Urine Bilirubin NEGATIVE (NEGATIVE) 03/26/18 06:25 Urine Urobilinogen 4.0 EU (0.2-1.0) H 03/26/18 06:25 Ur Leukocyte Esterase NEGATIVE (NEGATIVE) 03/26/18 06:25 Urine Glucose NEGATIVE (NEGATIVE) 03/26/18 06:25 Nasal Influenza A PCR TNP 03/26/18 09:26 Nasal Influenza B PCR TNP 03/26/18 09:26 Visualized and Interpreted Chest x-ray results: Yes Chest X-Ray results: no infiltrate, other (distended L colon) Visualized and Interpreted imaging results: Yes Interpretation: abd CT demonstrating ileus vs. obstruction at sigmoid colon w/ clear lung bases Assessment & Plan Assessment: 43 yo F p/w SIRS and hypotension in setting of acute large bowel ileus Plan: # SIRS. Acute, new problem, further w/u indicated. Unclear whether 2/2 ileus vs. nidus of infection at transition point in large bowel -given hypotension, empirically tx w/ Abx (cipro/flagyl) as it is possible there might be a predisposing colitis in the sigmoid transition point -sent stool PCR and BCx -bolus 1L given hypotension and repeat lactic acid level -cont NS 150/hr thereafter -repeat CBC in AM, monitor fever curve # Ileus. Acute, physical exam not c/w ongoing obstruction, located in sigmoid on imaging -clears -pain control -unclear cause, though suspect GI infxn -reglan/zofran PRN Diet. Clears PPx. Low risk, SCDs Code. Full, Daniel (partner) is MDPOA Dispo. ADD 03/27, pending resolution of above. Discussed w/ Jelly Renae, hospitalist, she has signed patient out to me for evaluation.
[2018-03-27 05:54] LABS: PLATELET COUNT 90 10^3/uL (150-400)
[2018-03-27 08:22] VITALS: BP 97/67
[2018-03-27] MEDS: CIPROFLOXACIN 400 MG/DEXTROSE 200 ML IV SCH (08:39)
[2018-03-27 12:12] LABS: HIV TYPE 1 AND 2 NEGATIVE (NEGATIVE)
--- NOTE | 2018-03-27 14:15 | PDDCSUM ---
Discharge Summary Discharge Summary: DISCHARGE SUMMARY FOLLOW-UP ITEMS: CBC tomorrow to be followed up by Dr. Javier Jackson DATE OF ADMISSION: 03/26/2018 DATE OF DISCHARGE: 03/27/2018 DISCHARGE DIAGNOSES: 1. Acute systemic inflammatory response syndrome 2. Suspected viral syndrome 3. Acute pancytopenia 4. Acute ileus CONSULTATIONS: Infectious Disease PROCEDURES / IMAGING: Abdominal CT demonstrating distended left colon with possible transition point in the sigmoid and proximal dilation, chest x-ray without any infiltrates CHIEF COMPLAINT: Acute fever, chills, malaise, headache, abdominal pain SUBJECTIVE: Patient is feeling improved at time of discharge, her symptoms have predominantly abated PHYSICAL EXAM ON DISCHARGE: Systolic blood pressure 90-100, heart rate 60-80, afebrile since 7:00 p.m. Last night, satting on room air, alert awake oriented x3, lungs are clear to auscultation bilaterally, heart rhythm is regular, no murmurs rubs or gallops appreciated, abdomen is soft, nondistended, completely nontender, bowel sounds are present, no lower extremity edema, some facial puffiness LABS ON DISCHARGE: White blood cell count is 1500, hemoglobin 11.5, platelets 90,000, relative eosinophilia, creatinine 0.6, liver panel unremarkable, respiratory viral panel negative, serum sodium 139, HIV test negative HOSPITAL COURSE BY PROBLEM: The patient presented with was most likely an acute viral syndrome with symptoms including headache, fever, malaise, abdominal pain, potentially affecting the GI system and resulting in a left-sided colonic ileus, which resolved without aggressive intervention. The patient's other symptoms were treated supportively with IV fluids, pain medication, and bowel rest. She did receive empiric IV antibiotics including Cipro and Flagyl given the initial severity of her systemic inflammatory response syndrome as well as hypotension. As her condition was improving and the cause is most likely viral, the antibiotics were discontinued. The patient advance her diet without any issues , and she is feeling well and would like to be discharged home. The patient's lab values demonstrated an evolving acute pancytopenia, which has yet to ramy. I discussed this with Dr. Javier Jackson, he saw the patient consultation, and since the patient appears to be clinically improving, we have agreed that she will have an outpatient lab draw tomorrow to be followed up by Dr. Jackson, and then subsequent lab draws if required in order to demonstrate the patient's ramy in her counts. The patient will be instructed to follow up with the Infectious Disease Clinic if she experiences any worsening in her clinical state. It is also possible that the patient's symptoms may be provoked by a recent ayurvedic herb she ingested, and Dr. Jackson and I have recommended that she discontinue ingestion of herbs at least in the short term. Is unclear whether the patient could have developed pancytopenia and relative eosinophilia from shatavari, but she did temporally ingest it immediately prior to her onset of symptoms. DISCHARGE MEDICATIONS: Please see official discharge medication reconciliation sheet in chart , Tylenol as needed, avoid ibuprofen light of thrombocytopenia. DISCHARGE INSTRUCTIONS: Please have labs drawn tomorrow, follow instructions of Infectious Disease provider moving forward.
--- NOTE | 2018-03-27 15:20 | GCON ---
[f rep st] CONSULTATION INPATIENT INFECTIOUS DISEASE CONSULT REFERRING PHYSICIAN: Miguel Angel rFost MD REASON FOR REFERRAL: Leukopenia, thrombocytopenia, febrile illness. HISTORY OF PRESENT ILLNESS: Patient is a 43-year-old female who is normally in good health, who bega n feeling ill on Friday. The patient relates a 4-day febrile illness, during which she got progressi vely weaker. She did not have any appetite and felt mildly nauseated. No other localizing signs. T he patient presented to the emergency room yesterday morning. Initial workup revealed a mild leukope fidelia with a mild thrombocytopenia. Patient had blood cultures taken and was admitted. The patient re lates that she took an herbal medication on Friday, which she had taken once before. The herb's name is romeo. This is supposed to help with female reproductive system issues. The patient had no problem the first time she took this. Today she is feeling somewhat improved. She is hungry for the first time and is ordering lunch. She has had normal bowel movements. She denies any shortness of breath. Her last fever was yesterday evening at 7:30. PAST MEDICAL HISTORY: History of a possible diagnosis of typhoid fever in 2011, although this was ma de clinically only while she was in the [facility]. Otherwise negative. PAST SURGICAL HISTORY: Status post dilatation and curettage in July. ANTIBIOTICS: 1. Ciprofloxacin. 2. Metronidazole. ALLERGIES: Patient is allergic to sulfa drugs. SOCIAL HISTORY: The patient is single. She is in a stable relationship. No significant tobacco, al cohol, or drug use noted. FAMILY HISTORY: Reviewed but noncontributory. REVIEW OF SYSTEMS: Other than that detailed above in the History of Present Illness, a comprehensive 10-system review is negative. PHYSICAL EXAMINATION: VITAL SIGNS: Temperature maximum is 38.3. Temperature current is 36.6. Hear t rate is 82. Respiratory rate is 14. Blood pressure is 97/67. GENERAL: The patient is a well-for med, well-nourished female in no acute distress. She is not toxic in appearance. She is alert and o riented x3. She is pleasant in demeanor. HEENT: Normocephalic for age. Atraumatic. No scleral ic terus. No oral lesion or drainage from the nares. Eyes: Lids and conjunctivae are within normal limits. Pupils are equal and round bilaterally. NECK : Supple. No meningismus. LUNGS: Clear to auscultation bilaterally, with good effort. HEART: Re gular rate and rhythm. No significant peripheral edema. ABDOMEN: Soft, nontender. No masses. SKI N: Warm and dry to the touch. No rash or lesion. MUSCULOSKELETAL: No muscle belly tenderness is n oted. No joint line effusion or arthritis is seen. NEURO: Cranial nerves 2-12 seem to be intact. Peripheral sensation seems intact in extremities. LABORATORY DATA: The patient has a CBC dated 03/27/2018, shows a white blood cell count of 1.53, hem oglobin of 11.5, hematocrit of 33.4, and a platelet count of 90. Differential shows 16% segmented ne utrophils, 19% band forms, 47% lymphocytes, 11% eosinophils. Serum chemistries: Sodium 139, potassium 3.5, chloride of 112, bicarbonate of 25, BUN of 5, creatini ne of 0.6. AST is 26. ALT is 26. HIV antibody is negative. MICROBIOLOGIC DATA: Patient has blood cultures dated 03/26/2018, which are no growth to date. Urine clean-catch from 03/26/2018 is growing multiple colony types. Respiratory viral panel PCR is negati ve. ASSESSMENT: Viral illness versus aberrant reaction or hypersensitivity response to herbal medication . Unclear which diagnosis is operative at this point. I explained both possibilities to the patient . At this point, the patient feels better and wishes to go home. I think this is reasonable as long as she obtains a CBC tomorrow to evaluate the ramy of her cell lines. If she is improved from toda y, then she can maintain outpatient status unless she worsens. PLAN: 1. No antibiotics going forward. 2. Recommend that she withhold the use of the herbal medication. 3. Follow up on laboratory values that she will obtain as an outpatient tomorrow. /[id number]
== END 2018-03-27 13:24 | disposition home or self-care (01) ==
LOC: F3E 08:07
PROVIDERS: ADMIT Family Medicine; ATTEND Internal Medicine
DX: R50.9 Fever, unspecified (principal); R65.10 Systemic inflammatory response syndrome (SIRS) of non-infectious origin without acute organ dysfunction; B34.9 Viral infection, unspecified; D61.818 Other pancytopenia; K56.7 Ileus, unspecified; R53.81 Other malaise; R51 Headache; E86.0 Dehydration; Z88.2 Allergy status to sulfonamides
CPT/HCPCS: 71045; 74177; 96360; 99285; G0378; J0744; J1170; J2405; Q9967